=== PATIENT | male | born 1955 | race Caucasian/White ===

== ENCOUNTER 2020-03-21 18:24 | Inpatient (IN) | payer OTHER ==
[~2020-03-21] VITALS: Ht 188 cm; Wt 73.5 kg
[2020-03-21] VITALS (208 sets, daily range): BP systolic 102–124; BP diastolic 69–73; PULSE 99–115; TEMP 97.8–99.2; O2SAT 74–100
[2020-03-21 19:07] LABS: BASO # 0.1 (0.0-0.2); BASO % 0.5 % (0.0-2.0); EOS % 0.4 % (0-4.0); GRAN # 8.1 (1.4-6.5); GRAN % 75.7 % (42.2-75.2); HEMOGLOBIN 11.2 g/dl (13.5-18.0); LYMPH # 1.8 (1.2-3.4); LYMPH % 16.8 % (20.0-51.0); MEAN CELL VOLUME 107 fl (80.0-100.0); MEAN CORPUSCULAR HEMOGLOBIN 37 pg (27.0-31.0); MEAN CORPUSCULAR HGB CONC 35 g/dl (33.0-37.0); MEAN PLATELET VOLUME 12.4 fl (7.4-10.4); MONO # 0.7 (0.1-0.6); MONO % 6.3 % (1.7-9.3); PLATELET COUNT 154 K/mm3 (130-400); RED BLOOD COUNT 3.04 M/mm3 (4.20-5.60); REDCELL DISTRIBUTION WIDTH-CV 18.6 % (11.5-14.5)
[2020-03-21 19:15] LABS: INR 3.9 (0.8-3.0)
[2020-03-21 19:18] LABS: PARTIAL THROMBOPLASTIN TIME 44.8 SECONDS (26.0-37.0)
[2020-03-21 19:23] LABS: ALANINE AMINOTRANSFERASE 22 U/L (4-49); ALBUMIN 2.6 gm/dL (3.5-5.0); ALKALINE PHOSPHATASE 159 U/L (50-136); ANION GAP 7 mmol/L (7-16); AST,SGOT 99 U/L (15-37); BILIRUBIN,TOTAL 11.1 mg/dL (0.0-1.0); BLOOD UREA NITROGEN 7 mg/dL (9-20); CALCIUM 7.7 mg/dL (8.4-10.2); CARBON DIOXIDE 23 mmol/L (22-30); CHLORIDE 106 mmol/L (98-107); CREATININE, serum 0.73 (0.66-1.25); GLUCOSE 142 mg/dL (74-106); MAGNESIUM 1.6 mg/dL (1.6-2.3); PHOSPHOROUS 3.9 mg/dL (2.5-4.5); POTASSIUM 3.9 mmol/L (3.4-5.0); SODIUM 136 mmol/L (137-145); TOTAL PROTEIN 6.2 gm/dL (6.4-8.2)
[2020-03-21 19:25] LABS: HEMATOCRIT 32.5 % (42.0-52.0)
[2020-03-21 19:49] LABS: ALCOHOL(ethanol),MEDICAL < 10 mg/dL
[2020-03-21 20:29] LABS: COLLECTION METHOD CLEAN CATCH
[2020-03-21] MEDS ORDERED: VENTOLIN0.09 MG IH (20:46)
[2020-03-21] MEDS ORDERED: RT ALBUTER2.5 MG/0.5 IH (20:49)
[2020-03-21] MEDS ORDERED: ANTI-GAS ULTRA180 MG PO (20:51)
[2020-03-21] MEDS ORDERED: 00186-0370-20 IH (20:54)
[2020-03-21 20:55] LABS: MUCOUS Present /lpf; PH 6 (5-8); SQUAMOUS EPITHELIAL 0-2 /hpf; URINE APPEARANCE Clear; URINE BACTERIA None Seen /hpf; URINE BILIRUBIN Positive (NEGATIVE); URINE BLOOD Negative (NEGATIVE); URINE COLOR Amber; URINE GLUCOSE Negative (NEGATIVE); URINE KETONE Negative (NEGATIVE); URINE LEUKOCYTE ESTERASE Negative (NEGATIVE); URINE NITRATE Negative (NEGATIVE); URINE PROTEIN(semi-quant) 1+ (NEGATIVE); URINE UROBILINOGEN >=4.0 mg/dL (NEGATIVE)
[2020-03-21] MEDS ORDERED: ZYRTEC 10MG10 MG PO (20:55)
[2020-03-21 20:56] LABS: TRICYCLIC ANTIDEPRESS URINE POSITIVE
[2020-03-21] MEDS ORDERED: B-121000 MCG PO (21:02)
[2020-03-21] MEDS ORDERED: DULCOLAX STOOL100 MG PO (21:05)
[2020-03-21] MEDS ORDERED: PEPCID 20MG TAB20 MG PO (21:07)
[2020-03-21] MEDS ORDERED: MEGACE 40MG40 MG/TAB PO (21:08)
[2020-03-21] MEDS ORDERED: LASIX 20MG TABL20 MG PO (21:09)
[2020-03-21] MEDS ORDERED: NORCO 325 MG-101 TAB PO (21:11)
[2020-03-21] MEDS ORDERED: PROSCAR 5MG5 MG PO (21:12)
[2020-03-21] MEDS ORDERED: FLOVENT 44MCG I13 GM IH (21:14)
[2020-03-21] MEDS ORDERED: ERGOCALCIFER50000 IU PO (21:17)
[2020-03-21] MEDS ORDERED: EFFEXOR 3737.5 MG/TA PO (21:18)
[2020-03-21] MEDS ORDERED: SPIRIVA RE2.5 MCG/Ac IH (21:19)
[2020-03-21] MEDS ORDERED: FLOMAX 0.40.4 MG/CAP PO (21:20)
[2020-03-21] MEDS ORDERED: SEROQUEL300 MG PO (21:21)
[2020-03-21] MEDS ORDERED: K-TAB20 PO (21:25)
[2020-03-21] MEDS ORDERED: COMPAZINE 110 MG/TAB PO (21:26)
[2020-03-21] MEDS ORDERED: EFFEXOR XR37.5 MG/CA PO (21:34)
[2020-03-21] MEDS ORDERED: FLONASE NASAL S16 GM NS (21:36)
[2020-03-22] VITALS (736 sets, daily range): BP systolic 110–119; BP diastolic 74–79; PULSE 110–125; TEMP 97.8–98.8; O2SAT 58–100
[2020-03-22 05:18] LABS: INR 2.7 (0.8-3.0); PROTHROMBIN TIME 30.1 SECONDS (9.7-12.8)
[2020-03-22 05:21] LABS: ALBUMIN 2.6 gm/dL (3.5-5.0); BILIRUBIN,TOTAL 12.7 mg/dL (0.0-1.0); CALCIUM 7.6 mg/dL (8.4-10.2); CREATININE, serum 0.66 (0.66-1.25); MAGNESIUM 1.6 mg/dL (1.6-2.3); PHOSPHOROUS 3.7 mg/dL (2.5-4.5); POTASSIUM 3.7 mmol/L (3.4-5.0); TOTAL PROTEIN 6.2 gm/dL (6.4-8.2)
[2020-03-22 05:29] LABS: BILIRUBIN,DIRECT 10.5 mg/dL (0.0-0.4)
[2020-03-22 05:30] LABS: BILIRUBIN UNCONJUGATED 1.8 mg/dL (0.0-1.1)
[2020-03-22 05:56] LABS: IRON,SERUM 74 ug/dL (35-150)
[2020-03-22 06:05] LABS: TOTAL IRON BINDING CAPACITY 139 ug/dL (261-462)
--- NOTE | 2020-03-22 08:13 | NUR ---
Endoscopy notified of EGD for patient.
--- NOTE | 2020-03-22 09:48 | NUR ---
Due to the patient's home condition Casino Supervisor made APS report. Intake # [id number]. SW staffed with the patient's nurse who provided VA nurse contact information. It is Alisha Quiles #[phone]. AMELIE spoke with Alisha. She provided the patient's SW information. It is Antonia Rosario #[phone].
--- NOTE | 2020-03-22 10:09 | NUR ---
I tried to talk with pt this morning. He was responsive with 1-2 word responses to questions. Reports he slept poorly last night. States there is probably someone we should call but he could not provide a name. Expressed concern about his health status. Pt offered no response. States they are doing something today but offered little else. Will attempt to meet with pt later on.
--- NOTE | 2020-03-22 11:31 | NUR ---
I contacted the person pt listed as person to contact. Cruz Sellers is his name [phone] and he lives in [place]. He met Alisha several years ago through a mutual friend. He reports that Alisha has been but was years ago. He thinks he has a couple of children but Alisha has told him they have not had any contact for many years and he has no idea of where they are. He reported that Alisha would go through episodes of "giving up" and then would try to get better but had been declining for some time. Cruz thought he had quit drinking about 3-4 months ago but Cruz is not the person who provides him with alcohol. He had been over to try to help Alisha get up and reports that Alisha used a walker to get around until recently when he just wasn't strong enough to get up at all. The neighbors are taking care of Alisha's dog. This was also discussed with case management.
--- NOTE | 2020-03-22 11:32 | NUR ---
Dr. Durand in PT room to perform paracentesis. Procedure is explained to PT who gives verbal consent to two RNs.
[2020-03-22 13:39] LABS: PERITONEAL -POLYMORPHONUCLEAR 4.1 % (0-25); PERITONEAL FLUID RBC 0 /mm3 (0-0)
--- NOTE | 2020-03-22 15:33 | NUR ---
Stopped in to check on pt this afternoon but he is sleeping post procedure and I did not awaken him.
--- NOTE | 2020-03-22 15:43 | NUR ---
This Phone Manager has attempted to meet with the patient throughout the day, and the patient has been hard to rouse each time. Phone Manager contacted Antonia the patient's SW through the CT to discuss establishing NOK. Antonia reports she has known the patient for two years and the patient has not opened up to her regarding NOK. After some digging, Antonia reports the patient's ex-'s name is Gabi Pitt (Kendall). She provided a couple of phone numbers. They were disconnected or is was not Gabi's number. Antonia requested to visit the patient and maybe she would be able to get this information with him. AMELIE and the unit nurse met with the patient and he was agreeable to having Antonia his visitor. This SW found an address on Gabi in [place], [place]. AMELIE contacted [place] [employer]. They went out to check the address and Gabi no longer resides there. AMELIE contacted the patient's friend and point of contact Cruz Sellers #[phone]. Cruz reports he has know the patient for about two years. Cruz reports the patient had a bad divorce and does not talk about it. He thinks he has three children but is not sure. Cruz states the patient did tell him he has not had contact with his ex- and children for years. Phone Manager met with the patient to complete initial intake. The patient has his eyes closed the whole time and was trying to bite the pulse ox on his finger. The patient lives alone in [place]. He receives medications from the CT. The patient does not have advanced directives in the EMR. AMELIE inquired about DPOA-HC he does not think he has one. When asked if he had any children. He stated they live in the [facility] [place]. SW asked their names. He mumbled some names. SW asked him to repeat the names. The patient turned his head and did not want to answer any other questions. AMELIE contacted Antonia and she reports the patient's PCP is PCP Ling Alvarenga APRN and [facility]. His last appointment was 02/17 and Ling attempted to get the patient to go the the ER for care, he declined. Antonia will attempt to visit with the patient on 03/23. PT/OT ordered. Palliative consult ordered. AMELIE collaborated the above information with the patient's nurse.
--- NOTE | 2020-03-22 19:40 | NUR ---
Received report from RONY Ireland.
--- NOTE | 2020-03-22 19:46 | NUR ---
Report given to RONY Jo.
[2020-03-22 20:49] LABS: FOLATE (FOLIC ACID) >20.0 ng/mL (7.0-31.4)
[2020-03-23] VITALS (580 sets, daily range): BP systolic 102–119; BP diastolic 76–85; PULSE 108–126; TEMP 97.9–98.6; O2SAT 59–100
--- NOTE | 2020-03-23 00:25 | NUR ---
Patient receiving IV fluids at 125mL/hr with no urine output yet noted on this shift. Day shift reported total output of approximately 150mLs. Patient bladder scanned, yielding > 450mL result. EV Sarabia, notified. Received orders to insert wilburn catheter. Will continue to monitor.
--- NOTE | 2020-03-23 01:39 | NUR ---
Total of 125mL of clear, dark amaury urine collected immediately following wilburn catheter insertion. No notified of urine output and patient's consistent sinus HR of 115-130. No new orders received at this time. Will continue to monitor.
[2020-03-23 04:52] LABS: BASO % 0.2 % (0.0-2.0); EOS % 0.1 % (0-4.0); GRAN # 9.2 (1.4-6.5); GRAN % 75.7 % (42.2-75.2); HEMOGLOBIN 10.7 g/dl (13.5-18.0); LYMPH # 2.1 (1.2-3.4); LYMPH % 17.5 % (20.0-51.0); MEAN CELL VOLUME 111 fl (80.0-100.0); MEAN CORPUSCULAR HEMOGLOBIN 37 pg (27.0-31.0); MEAN CORPUSCULAR HGB CONC 34 g/dl (33.0-37.0); MEAN PLATELET VOLUME 12.2 fl (7.4-10.4); MONO # 0.8 (0.1-0.6); MONO % 6.3 % (1.7-9.3); PLATELET COUNT 143 K/mm3 (130-400); RED BLOOD COUNT 2.87 M/mm3 (4.20-5.60); REDCELL DISTRIBUTION WIDTH-CV 18.4 % (11.5-14.5)
[2020-03-23 04:54] LABS: HEMATOCRIT 31.9 % (42.0-52.0)
[2020-03-23 04:57] LABS: INR 1.6 (0.8-3.0); PROTHROMBIN TIME 17.9 SECONDS (9.7-12.8)
[2020-03-23 05:03] LABS: ALBUMIN 2.4 gm/dL (3.5-5.0); BILIRUBIN,TOTAL 11.9 mg/dL (0.0-1.0); CALCIUM 7.7 mg/dL (8.4-10.2); CREATININE, serum 0.77 (0.66-1.25); MAGNESIUM 1.8 mg/dL (1.6-2.3); PHOSPHOROUS 2.4 mg/dL (2.5-4.5); POTASSIUM 3.8 mmol/L (3.4-5.0); TOTAL PROTEIN 5.9 gm/dL (6.4-8.2)
[2020-03-23 05:34] LABS: BILIRUBIN UNCONJUGATED 1.8 mg/dL (0.0-1.1); BILIRUBIN,DIRECT 9.5 mg/dL (0.0-0.4)
--- NOTE | 2020-03-23 07:40 | NUR ---
Report given to RONY Montes.
--- NOTE | 2020-03-23 07:42 | NUR ---
Report received from Deysi URIBE and care resumed.
--- NOTE | 2020-03-23 11:47 | NUR ---
Dr Ball in to see pt at this time.
--- NOTE | 2020-03-23 13:44 | NUR ---
AMELIE met with Maryam Billingsley in room about patient's status. indicated that patient has need for palliative care. SW with [place] indicated that there is not family connections. Concerns right now are the patient's code status. Educated Maryam, if no NOK can be located, we can see if the PCP would be willing to make a medicatial decision to change statues based on last physical and medical statues. Educated that this not an absolute. Educated if the patient is able to verbalize he can indicated statues change but the hospitalist indicated that he has had altered mental status. Awaiting the VA's Advanced directions. Maryam indicated that she has a copy of the directives, although they do not indicated a person for decision making, she will provide a copy.
--- NOTE | 2020-03-23 16:35 | NUR ---
SW made contact with [place] Police to have them search the patient's last name. No results. SW made contact made contact with [place] [employer] Marco: The only contact he found is Raulito Mccoy who is reported to take care of the clients dog. AMELIE called Raulito . VM was full and could not leave message. AMELIE recieved phone number for Gabi Ex- [phone], Phone disconnected. Left message for Alisha Quiles at 02:23 pm. No call returned. AMELIE completed web search for family name Cb and no search available to match lead on information. AMELIE notifed house of attempts and joint supervisor. Will continue to follow. Legal process initiated.
--- NOTE | 2020-03-23 19:10 | NUR ---
Report given to Deysi URIBE and care resumed.
[2020-03-24] VITALS (463 sets, daily range): BP systolic 104–130; BP diastolic 69–78; PULSE 108–133; TEMP 97.5–98.7; O2SAT 50–100
[2020-03-24 05:28] LABS: BASO % 0.2 % (0.0-2.0); EOS # 0.1 (0.0-0.7); EOS % 0.7 % (0-4.0); GRAN # 6.8 (1.4-6.5); GRAN % 73.6 % (42.2-75.2); HEMOGLOBIN 10.3 g/dl (13.5-18.0); LYMPH # 1.6 (1.2-3.4); LYMPH % 17.8 % (20.0-51.0); MEAN CELL VOLUME 110 fl (80.0-100.0); MEAN CORPUSCULAR HEMOGLOBIN 37 pg (27.0-31.0); MEAN CORPUSCULAR HGB CONC 33 g/dl (33.0-37.0); MEAN PLATELET VOLUME 12.2 fl (7.4-10.4); MONO # 0.7 (0.1-0.6); MONO % 7.2 % (1.7-9.3); PLATELET COUNT 127 K/mm3 (130-400); RED BLOOD COUNT 2.82 M/mm3 (4.20-5.60)
[2020-03-24 05:37] LABS: INR 1.6 (0.8-3.0)
[2020-03-24 05:44] LABS: ALBUMIN 2.4 gm/dL (3.5-5.0); BILIRUBIN,TOTAL 11.8 mg/dL (0.0-1.0); CALCIUM 7.8 mg/dL (8.4-10.2); CREATININE, serum 0.67 (0.66-1.25); MAGNESIUM 1.8 mg/dL (1.6-2.3); PHOSPHOROUS 2.6 mg/dL (2.5-4.5); POTASSIUM 4.1 mmol/L (3.4-5.0); TOTAL PROTEIN 5.8 gm/dL (6.4-8.2)
[2020-03-24 06:02] LABS: BILIRUBIN UNCONJUGATED 1.7 mg/dL (0.0-1.1)
[2020-03-24 06:26] LABS: BILIRUBIN,DIRECT 5.9 mg/dL (0.0-0.4)
--- NOTE | 2020-03-24 07:20 | NUR ---
Report received from Deysi URIBE and care resumed.
--- NOTE | 2020-03-24 07:22 | NUR ---
Report given to RONY Montes.
--- NOTE | 2020-03-24 08:30 | NUR ---
Dr Suarez in to see pt at this time and was given status update.
--- NOTE | 2020-03-24 09:33 | NUR ---
Dr Palmer in to see pt at this time.
--- NOTE | 2020-03-24 14:09 | NUR ---
AMELIE informed by nursing staff that Antonia (Corporate Account Executive from [place]) was present in patient's room. AMELIE met with Antonia and provided same previous information as stating that patient had not listed names of any relatives or the 5 children he previously mentioned he had. Antonia provided that she would stay for a while to talk to patient since she is familiar with has care due to previous care. Antonia stated that she asked patient questions, he opened his eyes and then closed them immediately. Antonia stated that in [place] paperwork patient is listed as a full code. Antonia provided that she has attempted to explain the CPR procedure to patient, but when she talks directly to him, he opens his eyes and then closes them immediately with no response. Nurse in ICU provided that a person called in regards to taking care of patient's dog, but it was not the previous person listed in notes. SW attempted to follow up with that person to obtain more information, but there was no answer. SW attempted to speak to patient, patient not responding. SW to continue to follow.
[2020-03-24 14:35] LABS: ANA SCREEN with REFLEX Negative (Negative)
--- NOTE | 2020-03-24 16:10 | NUR ---
Report given to Mi URIBE on surgical floor. Mi and SALLY brought bed to room and helped transfer pt. Chart and belongings sent up with transfer. Pt's VA social contact worker Antonia was called. No answer so message regarding transfer was left.
--- NOTE | 2020-03-24 16:15 | NUR ---
Patient to room 345 via bed from ICU. Patient will moan outwhen talked to and at times incomprehensible. Skin jaundiced. Patient is on oxygen at 3L/NC. Lung sounds are diminished. Heart rate tachycardic and irregular. Bowel sounds active in all quads. Bottom red. Soriano catheter draining dark brown urine. Bruise noted to left hip and patient has abrasions on bilateral knees. When asked patient if he needs anything more heshakes head no.
--- NOTE | 2020-03-24 16:56 | NUR ---
Attempt to review med rec, pharmacy, and allergies with the patient. Patient does not keep eyes open to discuss and does not respond to questions answered, he just goes back to sleep.
--- NOTE | 2020-03-24 17:57 | NUR ---
Patient repositioned to left side. Patient will open eyes but he does not talk when asked questions.
--- NOTE | 2020-03-24 20:55 | NUR ---
PT WILL NOT KEEP NEBULIZER MASK ON.
[2020-03-25] VITALS (11 sets, daily range): BP systolic 97–137; BP diastolic 55–85; PULSE 50–145; TEMP 97.5–98.6
--- NOTE | 2020-03-25 03:34 | NUR ---
PT RESTING QUIETLY. NO INDICATION OF PAIN. PT STATED AT BEGINNING OF SHIFT THAT HE HAD NO PAIN. SKIN APPEARS A BIT JAUNDICED. A NURSE FROM THE . THAT IS FAMILIAR WITH THE PT STATED SHE WOULD CALL FIREWOOD CUTTER TO SEE IF SHE COULD ASSIST THEM IN FINDING FAMILY MEMBERS.
[2020-03-25 07:09] LABS: BASO % 0.4 % (0.0-2.0); EOS % 0.5 % (0-4.0); GRAN % 71.7 % (42.2-75.2); HEMATOCRIT 31.8 % (42.0-52.0); HEMOGLOBIN 10.7 g/dl (13.5-18.0); LYMPH # 1.6 (1.2-3.4); MEAN CELL VOLUME 112 fl (80.0-100.0); MEAN CORPUSCULAR HEMOGLOBIN 38 pg (27.0-31.0); MEAN CORPUSCULAR HGB CONC 34 g/dl (33.0-37.0); MEAN PLATELET VOLUME 12.2 fl (7.4-10.4); MONO # 0.7 (0.1-0.6); MONO % 8.2 % (1.7-9.3); PLATELET COUNT 135 K/mm3 (130-400); RED BLOOD COUNT 2.84 M/mm3 (4.20-5.60); REDCELL DISTRIBUTION WIDTH-CV 17.8 % (11.5-14.5)
[2020-03-25 07:13] LABS: INR 1.6 (0.8-3.0); PROTHROMBIN TIME 18.4 SECONDS (9.7-12.8)
[2020-03-25 07:14] LABS: ALBUMIN 2.5 gm/dL (3.5-5.0); BILIRUBIN UNCONJUGATED 1.8 mg/dL (0.0-1.1); BILIRUBIN,TOTAL 12.9 mg/dL (0.0-1.0); CALCIUM 8.1 mg/dL (8.4-10.2); CREATININE, serum 0.66 (0.66-1.25); POTASSIUM 3.8 mmol/L (3.4-5.0); TOTAL PROTEIN 6.1 gm/dL (6.4-8.2)
[2020-03-25 07:46] LABS: MAGNESIUM 1.7 mg/dL (1.6-2.3); PHOSPHOROUS 2.9 mg/dL (2.5-4.5)
--- NOTE | 2020-03-25 07:48 | NUR ---
Patient resting in bed, only minimally responsive to questions; is able to give one word answers intermittently. Patient SpO2 on 2L on NC is in the mid to low 70's. Applied an oxymask and and an adhesive SpO2 monitor, turned O2 up to 4L and SpO2 came up to high 90's. Telemetry remains in place. Bed alarm on, patient on continuous pulse oximetry in place. Frequent visiual checks.
[2020-03-25 08:04] LABS: ALPHA 1 ANTITRYPSIN TOTAL 154.6 mg/dL (())
--- NOTE | 2020-03-25 10:07 | NUR ---
Dye Padder Operator contacted Antonia LA AMELIE to discuss NOK for the patient. Antonia report that the [place] nurse confirms that the patient's ex-, Gabi Pitt and his son, Emil Arroyo work at a [employer] in [place] and they have a Facebook account. This SW contacted both Antonia and Emil via facebook message. As result of that message, the patient's daughter, Floresita contacted this SW. Her phone number is . She states she is willing to make medical decisions if needed. She also states the patient has four other children. Emil, Amilcar, Janet, and Alfa. Floresita provided Amilcar and Janet's phone numbers,([phone] and , respectively. AMELIE contacted Amilcar left message. AMELIE attempted to contact Janet, his number was not in service. Floresita provided another phone number for Alfa . Amilcar contacted this SW. AMELIE explained the legal process of establishing NOK. AMELIE asked Amilcar, if he was willing to make decisions for the patient along with his siblings. Amilcar replied, No. AMELIE in contact with Emil via Facebook message. He is at work until 9pm and have not been able to talk over the phone with him. AMELIE collaborated the above information with the team.
--- NOTE | 2020-03-25 10:11 | NUR ---
I spoke with daughter Floresita Arroyo [phone] by phone. She is the oldest of Alisha's 6 children. She has had almost no contact with her father over her life--he abandoned his and children when she was 5 yo. He has abused alcohol all of his life and has had health issues most of his life. She tried to meet with him 5-10 years ago but he was "too busy drinking to keep any of the meetings". She did identify a sister Catrina Lackey-- to [place] but again reports he has almost no contact with his family for many many years. His mother is . Floresita does not believe that her brothers would like any contact with their father. She did say she did not want her father to suffer unnecessarily and did agree that she could be contacted about his status. At this point though she would not give input regarding DNR/comfort care. She did recommend calling her brothers, Amilcar, and Jer later in the day as they would either be at work or sleepingnow.
--- NOTE | 2020-03-25 11:32 | NUR ---
Typing Bookkeeper was contacted by the patient's son, Alfa. SW discussed establishing next of kin. Alfa reports the patient has not been involved with in his life since . He states he reached out the patient once and it did not go well. AMELIE discussed being involved with Floresita to be a medical decision maker for the patient. When asked if he was willing to be a medical decision maker for the patient he stated, "No, I don't." He states that he is okay with Floresita being that person. AMELIE collaborated the above information with the team.
[2020-03-25 13:00] LABS: CERULOPLASMIN 26 mg/dL (20-60)
--- NOTE | 2020-03-25 17:39 | NUR ---
Patient continues to be minimally responsive. No indications of pain or discomfort, SpO2 will drop if patient removes oxymask and pulse with spike in response, VS return to normal range when oxygen reapplied. Patient currently resting comfortably, wilburn and telemetry remain in place.
--- NOTE | 2020-03-25 21:00 | NUR ---
Patient opens eyes to voice but is not responding. Patient unable to take any PO meds. Patient's skin is jaundice. Repositioned patient onto his side. Will continue to monitor.
[2020-03-26] VITALS (9 sets, daily range): BP systolic 94–124; BP diastolic 57–78; PULSE 45–127; TEMP 97.6–98.9
--- NOTE | 2020-03-26 06:23 | NUR ---
Patient's hands are cold and having trouble reading his oxygen. RT brought one for his ear and he was at 98% oxygen. Patient still very jaundice and not responding.
--- NOTE | 2020-03-26 11:19 | NUR ---
EEG attempted at this time. Patient is on 11 liters of O2 SPO2 90%, Heart rate is trending between 135-145. POOL NURSE cleaning up patient. Spoke with Dr. Palmer at this time about overall plan with patient. He plans to speak with family today. Will attempt again at 6:30am Tomorrow depending on how family wishes to proceed with care. Radu Peterson, DONOR SERVICES MANAGER
--- NOTE | 2020-03-26 11:44 | NUR ---
PATIENT ASKED IF HE IS IN PATIENT. PATIENT STATES 'NO'. PATIENT ASKED TO STATE NAME AND BIRTHDATE. PATIENT WAS ABLE TO STATE HIS BIRTHDATE, BUT WOULD NOT STATE HIS NAME. PATIENT RESPONDED TO HIS NAME. PATIENT RESTLESS AND MOANING. THIS NURSE ASKED IF THE PATIENT WANTED TO SIT UP. HE SAID 'YES'. HEAD OF BED ELEVATED FOR PATIENT. WILL CONTINUE TO MONITOR.
--- NOTE | 2020-03-26 12:53 | NUR ---
Forensic Locksmith contacted the patient's son's Kentrell and Emil. After discussing the role of medical decision maker for the patient, they both declined to be participants. They both do not mind that their sister Floresita Arroyo be the only decision maker. There will be a family meeting with Floresita this day at 1400. SW collaborated the above information with the patient's team.
--- NOTE | 2020-03-26 14:39 | NUR ---
Family meeting held with kerline and her , Dr Palmer, Carmencita transition social worker, and Rocío White RN. Dr Palmer reviewed pt medical status and questions were invited and answered. Family asked how long pt had to live if aggressive care was stopped and Dr Palmer advised that we are probably looking at 1-2 weeks. Daughter did want to go visit her father in his room. he did acknowledge her presence but it is difficult to say if he kew who she was or not at this point. It has been 30 years since they have seen each other. Family is ok with starting to look for facility to care for Alisha and are interested in comfort care with DNR status as there is very little that can be done to prolong Alisha's life and indeed would increase his suffering. They are aware that a psych consult is still required to verify Alisha's inability to make his own decisions and that this will be done tomorrow. Support was provided and family was given time to talk with patient.
--- NOTE | 2020-03-26 15:44 | NUR ---
Comfort care quilt provided to pt. Daughter is still at bedside and reports that she got him to take a drink which she was very pleased about. She reports that she is doing ok in the room with her father and denies further needs.
--- NOTE | 2020-03-26 16:43 | NUR ---
Dance Choreographer attended a family meeting with the patient's daughter, Floresita and her . Also present Rocío White and Hospitalist. Hospitalist discussed the patient's condition. The patient is to have a psychiatric consult to determine capacity. The family understands this process. Once capacity is determined the family will likely lean toward comfort measures. SW collaborated the above information with the patient's nurse.
--- NOTE | 2020-03-26 18:52 | NUR ---
PATIENT HAD NO PO INTAKE DURING DAY SHIFT. MINIMAL URINE OUTPUT. NEURO CHECKS UNCHANGED. BEDSIDE REPORT GIVEN TO ONCOMING NURSE.
--- NOTE | 2020-03-26 23:14 | NUR ---
Patient resting in bed. RT did a breathing treatment with him earlier. Patient not responding to directions, but opens his eyes to voice.
[2020-03-27 03:39] VITALS: BP 129/62; PULSE 122; TEMP 97.9
[2020-03-27 07:56] VITALS: BP 101/63; PULSE 137; TEMP 98
--- NOTE | 2020-03-27 08:00 | NUR ---
Patient in bed resting. Repositioned at this time. Soriano to dependent drainage with dark amaury urine present. IV fluids infusing per orders to left forarm IV. Patient will occassionally moan and seldomly answers questions. Will continue to monitor.
--- NOTE | 2020-03-27 10:26 | NUR ---
Pt is resting quietly in bed and does not respond to voice or touch. His 02 sats have been good, so his oxygen was removed by respiratory therapy this morning I was told. We are still waiting on his psych eval to be done.
[2020-03-27 11:31] VITALS: BP 121/59; PULSE 129; TEMP 98
[2020-03-27 12:52] LABS: ANTISMOOTH MUSCLE ANTIBODY Negative (Negative)
[2020-03-27 15:48] VITALS: BP 97/56; PULSE 127; TEMP 98.6
--- NOTE | 2020-03-27 15:50 | NUR ---
Dr. Hernández in for [facility] consult.
--- NOTE | 2020-03-27 19:24 | NUR ---
Patient has done well throughout the day. Patient repositioned throughout the day. Will respond to painfull stimuli and occassionally when talking to patient. Reported off to skid road worker.
[2020-03-27 20:36] VITALS: BP 103/58; PULSE 49; TEMP 98.2
--- NOTE | 2020-03-27 21:00 | NUR ---
Pt. laying in bed with eyes closed, respirations are equal and unlabored at this time. Pt. is unrespinsive at this time. Pt. will only moan when being moved around. Shift assessment complete. IV to lt. forearm patent, IV fluids infusing per orders. Soriano catheter to DD, with dark amaury urine noted. Pt. repositioned for comfort.
[2020-03-28 00:30] VITALS: BP 105/58; PULSE 127; TEMP 98
[2020-03-28 03:59] VITALS: BP 105/54; PULSE 126; TEMP 98.4
[2020-03-28 07:11] VITALS: BP 103/53; PULSE 136; TEMP 97.9
--- NOTE | 2020-03-28 08:27 | NUR ---
The [place] Sql Database Developer, Antonia contacted this SW regarding the patient. The patient's VA [facility] is not service related. Therefore the order for the VA to cover hospice for the patient the provider will have to give the patient 6 months or less to live and the discharge orders have to reflect that information. Antonia states the following facilties are contracted with the [place] to provide hospice services: [facility] in , [facility] [place], [facility], and [facility]. The psych consult was completed. Dr. Ortiz. She recommends to go along with the patient's next of kin wishes for comfort care. AMELIE faxed referrals to the above facilties. [facility] has declined the patient. Awaiting responses on the other facilties. AMELIE collaborated the above information with the patient's daughter, his VA SW, and the team.
--- NOTE | 2020-03-28 10:04 | NUR ---
Pt is laying in his bed quietly when I entered the room. When I spoke to him, there was a slight movement of his head but nothing further. He appears comfortable, eyes closed, no movement of extremities, breathing is unlabored. He remains jaundiced. per report he is not taking any po.
--- NOTE | 2020-03-28 11:22 | NUR ---
Antonia, VA Gluing Pressman reports that she has reached out to [facility] and [facility] and neither facilties are taking patients at this time. Antonia is in communication with Irma at the [facility] in [place] to explore openings there. Antonia has the VA contract [facility]. AMELIE inquired about transporation for the patient and the VA should cover it. Ricky contacted this SW. AMELIE connected Ricky with Hospitalist and they spoke regarding the patient's prognosis. Ricky to have his team review the information then inform AMELIE of decision.
[2020-03-28 12:11] VITALS: BP 88/51; PULSE 135; TEMP 97.7
--- NOTE | 2020-03-28 15:21 | NUR ---
Ricky reports they can take the patient for hospice care once the VA contract is completed. [facility] faxed updates progress note to [facility]. AMELIE informed Antonia of the above information. She will check with her team on the status of the contract. Still awaiting COVID19 result. AMELIE collaborated the above information with the team.
--- NOTE | 2020-03-28 15:33 | NUR ---
Patient moaning in room, Having crista-esquivel breathing, Roxynal given per orders.
--- NOTE | 2020-03-28 15:38 | NUR ---
The patient is now on comfort measures. The patient's sister, Jovanna contacted this SW. She inquired about being able to visit the patient. AMELIE staffed with Maria Elena, coremaker floor. She reports that she would be able to visit since the patient is now on comfort measures. AMELIE informed Jovanna and she does live in [place] and does know if she will be able to visit. AMELIE discussed the plan for discharge and AMELIE informed Jovanna that the patient will discharge as soon as the VA contract is finished. She understood and will inform SW if she will visit or not. AMELIE collaborated the above information with the patient's nurse.
--- NOTE | 2020-03-28 18:52 | NUR ---
Patient has done well throughout the day. Roxynol given per orders. Patient occasionally moaning. Repositioned throughout the day. Christie to TUNDE. Bedbath provided today. Denies further needs at this time. Reported off to uplands division director.
--- NOTE | 2020-03-28 20:45 | NUR ---
Pt. laying in bed, eyes closed respirations are normal at this time. Pt. unresponsive at this time. Comfort care measures in place.
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
--- NOTE | 2020-03-29 09:19 | NUR ---
Distribution Clerk was contacted by [facility]. She reports that [facility] will get the VA contract today. The patient will be using [facility] for hospice services at [facility]. Referral faxed. AMELIE collaborated the above information to the team.
--- NOTE | 2020-03-29 10:14 | NUR ---
Pt is in his room alone on his right side. He does not respond to voice or touch, Respirations are shallow and labored, skin is jaundiced, scalp is covered with a towel. I anticipate he will go to accepting facility later today on comfort/hospice care.
--- NOTE | 2020-03-29 10:18 | NUR ---
Station Mechanic staffed with this Source Inspector regarding someone picking up the patient's belongings. SW contacted the patient's daughter, Floresita. She states she will possibly be in [place] on Wednesday, 03/31 and she will be able to pick the patient's belongings at that time.
[2020-03-29] MEDS ORDERED: IPRATROPIUM BROM3 M1 IH (12:21)
[2020-03-29] MEDS ORDERED: TRANSDERM-0.5 MG/21 TD (12:22)
[2020-03-29] MEDS ORDERED: ATIVAN 1MG T1 MG/TAB PO (12:22)
[2020-03-29] MEDS ORDERED: ROXANOL 20MG20 MG/ML SL (12:22)
[2020-03-29] MEDS ORDERED: ZOFRAN ODT4 MG PO (12:24)
--- NOTE | 2020-03-29 13:03 | NUR ---
PATIENT'S SISTER JUST ARRIVED AT BEDSIDE.
--- NOTE | 2020-03-29 13:23 | NUR ---
The patient is to tentatively discharge today, 03/29 to [facility] with [facility]. The patient's sister visting the patient at this time. [facility] to transport the patient at 1500. The team and family were in agreeance. SW faxed discharge orders to [facility] and to [facility]. There are no additional needs at this time.
--- NOTE | 2020-03-29 14:19 | NUR ---
Follow up visit from the matrix bath operator. No needs right now.
--- NOTE | 2020-03-29 14:40 | NUR ---
EMS ARRIVED FOR HOSPICE TRANSPORT. PATIENT IS CURRENTLY DISPLAYING AGONAL BREATHING WITH A RESP RATE OF 6. PATIENT IS VERY JAUNDICE, WITH DRY SKIN & EYES, AND THIN BODY FRAME. NOTED +2 EDEMA IN BUE. BRIONES TO DD. TRANSFER PAPERWORK, PERSONAL BELONGINGS & DNR GIVEN TO EMS. PATIENT DISCHARGED.
--- NOTE | 2020-03-29 19:22 | NUR ---
1600 - Ricky, from [facility] called to tell this nurse that the patient had on the ambulance stretcher upon arrival to the long-term. Ricky stated "We can not admit a body" Told Ricky to bring patient back to the hospital and return him to the room where they picked him up. 1605 - Recieved a call from Spenser Wahl asking what we wanted EMS to do about the patient. Told Spenser to bring patient back to his room. 1610 - Made Dr Coppola aware of patients and his return to the facility 1620 - Patient arrrived back to his room. 1630 - Called daughter to make aware of patients passing. Daughter asked if we could call the [employer] Soaker Soda Worker and question her as she is understanding that plans had been through her. 1715 - Attempted to call EMS and was able to get time of . Patient was pronounced @ 1606 by Spenser Durham, EMT and Gregoria Byrne, network security consultant. 1745 - Call placed to [facility]. Reviewed chart with coordinator. Patient is candidate for tissue and eyes. Case # [id number]. Staff placed ice on patient's eyes and tissue. 182 Daughter called regarding regarding belonging. Stated keep all valuables; cell phones, keys and his clothes; she will berry picker on Wednesday. Valuables placed in safe and clothing in belonging bags. Patient is wearing silver ring. Daughter is aware that he is wearing ring to the home. 190 - Report given off to RONY Dawsonmat machine tender of [employer] events.
--- NOTE | 2020-03-29 19:37 | NUR ---
Spoke with Kobe at [facility], states patient is not a candidate for donation at this time. Patient to be released to home.
--- NOTE | 2020-03-29 21:10 | NUR ---
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
--- NOTE | 2020-03-31 11:38 | NUR ---
Patient daughter Floresita Alfordiver here to picking table worker patient belongings.
== END 2020-03-29 15:40 | disposition hospice, home (50) | DRG 441 ==
LOC: ICU 18:24 → SURG 03-24 16:14
PROVIDERS: Internal Medicine Gastroenterology; Nurse Practitioner Family; ADMIT Student in an Organized Health Care Education/Training Program
PROC: 0DJ08ZZ Inspection of Upper Intestinal Tract, Via Natural or Artificial Opening Endoscopic (ICD-10-PCS; 2020-03-22)
PROC: 0W9G3ZZ Drainage of Peritoneal Cavity, Percutaneous Approach (ICD-10-PCS; principal; 2020-03-23)
DX: K72.00 Acute and subacute hepatic failure without coma (principal); E43 Unspecified severe protein-calorie malnutrition; G92 Toxic encephalopathy; J96.01 Acute respiratory failure with hypoxia; D68.9 Coagulation defect, unspecified; R65.10 Systemic inflammatory response syndrome (SIRS) of non-infectious origin without acute organ dysfunction; E87.2 Acidosis; K86.1 Other chronic pancreatitis; F05 Delirium due to known physiological condition; K22.10 Ulcer of esophagus without bleeding; Z68.1 Body mass index [BMI] 19.9 or less, adult; K70.11 Alcoholic hepatitis with ascites; J44.9 Chronic obstructive pulmonary disease, unspecified; F43.10 Post-traumatic stress disorder, unspecified; G40.909 Epilepsy, unspecified, not intractable, without status epilepticus; Z20.828 Contact with and (suspected) exposure to other viral communicable diseases; F17.210 Nicotine dependence, cigarettes, uncomplicated; E86.0 Dehydration; K29.70 Gastritis, unspecified, without bleeding; D69.6 Thrombocytopenia, unspecified; D53.9 Nutritional anemia, unspecified; T42.4X5A Adverse effect of benzodiazepines, initial encounter; K29.80 Duodenitis without bleeding; E87.6 Hypokalemia; E83.42 Hypomagnesemia; M62.84 Sarcopenia; Z86.718 Personal history of other venous thrombosis and embolism
CPT/HCPCS: 99223-AI; 99231-AI; 99232-AI; 99233-AI; 99239; A4314; C9113; J2060; J2550; J2704; J2920; J3411; J3430; J3475; J3480; J7030; J7509